=== PATIENT | female | born 2000 | race Caucasian/White ===

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

== ENCOUNTER → 2022-04-24 | Outpatient (REF) | payer OTHER ==
[2022-04-24 19:49] LABS: APPEARANCE, URINE MANUAL CLEAR (CLEAR); COLOR, URINE MANUAL YELLOW (YELLOW)
[2022-04-24 19:50] LABS: BILIRUBIN, URINE MANUAL NEGATIVE (NEGATIVE); BLOOD URINE MANUAL NEGATIVE (NEGATIVE); GLUCOSE, URINE (UA) MANUAL NEGATIVE (NEGATIVE); KETONE, URINE MANUAL NEGATIVE (NEGATIVE); LEUKOCYTE ESTERASE, URINE MAN NEGATIVE (NEGATIVE); NITRITE, URINE MANUAL NEGATIVE (NEGATIVE); PROTEIN, URINE MANUAL NEGATIVE (NEGATIVE); UROBILINOGEN, URINE MANUAL NORMAL (NORMAL)
[2022-04-24 19:52] LABS: URINE PREG TEST NEGATIVE (NEGATIVE)
[2022-04-24 20:40] LABS: TOTAL PROTEIN,RANDOM URINE 9.6 MG/DL (0.0-14.0)
[2022-04-24 20:45] LABS: CREATININE,RANDOM URINE 104.1 MG/DL
== END ==
LOC: M LAB REF 16:49
PROVIDERS: ATTEND Pediatrics
DX: R80.8 Other proteinuria (principal)